=== PATIENT | female | born 1955 | race Caucasian/White ===

== ENCOUNTER 2024-10-07 16:47 | Emergency (ER) | payer MEDICARE, SELFPAY ==
[2024-10-07] VITALS (7 sets, daily range): BP systolic 111–135; BP diastolic 56–89; PULSE 75–89; RESP 16; TEMP 36.9; O2SAT 96–99; BMI 20.3
--- NOTE | 2024-10-07 17:15 | EKG_ITS ---
[address] [address] Test Date: 2024-10-07 Pat Name: Nehal Medel Department: [facility] Room: Gender: Female [employer] Manager: KSENIA : 1955 Requested By: Order Number: [id number] Reading MD: Elan Pennington Measurements Intervals [place] Rate: 75 P: 68 [place]: 158 QRS: 70 QRSD: 86 T: 62 QT: 392 QTc: 437 Interpretive Statements Normal sinus rhythm Electronically Signed On 10-11-2024 9:13:46 PDT by Elan Pennington
[2024-10-07 18:21] LABS: Hematocrit 44.9 % (36-46); Hemoglobin 15.0 g/dL (12.0-16.0); Mean Corpuscular HGB Conc 33.3 % (30-36); Mean Corpuscular Hemoglobin 30.4 PG (26-34); Mean Corpuscular Volume 91.2 fL (80-100); Platelet Count 204 X10^3/uL (150-400)
[2024-10-07 18:27] LABS: Alanine Aminotransferase 18 IU/L (<35); Albumin 4.7 g/dL (3.5-5.0); Albumin Globulin Ratio 1.6 (1.0-2.8); Alkaline Phosphatase 86 U/L (38-126); Blood Urea Nitrogen 18 mg/dL (7-17); Calcium 9.4 mg/dL (8.4-10.2); Carbon Dioxide 26 mmol/L (22-32); Chloride 99 mmol/L (98-107); Estimated Glomerular Filt Rate > 60 mL/min (>60); Globulin 3.0 g/dL (1.7-4.1); Glucose 99 mg/dL (70-99); HEMOLYSIS < 15 (0-50); Lipase 49 U/L (23-300); Potassium 3.8 mmol/L (3.4-5.1); Sodium 134 mmol/L (137-145); Total Protein 7.7 g/dL (6.3-8.2)
[2024-10-07 18:48] LABS: Culture Indicated Urine Cult Not Indicated
[2024-10-07 19:02] LABS: Add Manual Diff / Slide Review YES
--- NOTE | 2024-10-07 19:16 | ED.ABDPAIN ---
HPI - Abdominal Pain General Chief Complaint: Abdominal Pain Stated Complaint: severe lower abd cramping Time Seen by Provider: 10/07/24 19:05 Source: patient Mode of arrival: Ambulatory History of Present Illness HPI narrative: 68-year-old female with history of previous mild diverticulitis treated as an outpatient remotely, no known history of kidney stones, 2 weeks ago had left lower quadrant pain for few hours did not seek care and went away by itself, now since yesterday having nontraumatic left lower quadrant, more so than right lower quadrant pain. No nausea or vomiting. No diarrhea. No black or red stools. No frequency or painful urination. No fevers or chills. No cough or shortness of breath. Related Data Previous Rx's ?Medication ?Instructions ?Recorded amoxicillin 875 mg-potassium 1 tab PO BID #20 tabs 10/07/24 clavulanate 125 mg tablet Allergies Allergy/AdvReac Type Severity Reaction Status Date / Time No Known Drug Allergies Allergy Verified 10/07/24 17:12 Patient History Social History Smoking Status: Never smoker Smoking Status: Never smoker Exam Narrative Exam Narrative: GENERAL: Well-developed patient, in mild distress. HEAD: Atraumatic. Normocephalic. EYES: Pupils equal round and reactive. Extraocular motions intact. No scleral icterus. No injection or drainage. ENT: Nose without bleeding, purulent drainage. Throat without erythema, tonsillar hypertrophy or exudate. Airway patent. NECK: Trachea midline. Non tender CARDIOVASCULAR: Regular rate and rhythm without murmurs, gallops, or rubs. RESPIRATORY: Clear to auscultation. Breath sounds equal bilaterally. No wheezes, rales, or rhonchi. GASTROINTESTINAL: Abdomen soft, non-tender, nondistended. EXTREMITIES: No edema or joint tenderness. BACK: Nontender without deformity or crepitance. No flank tenderness. NEURO: AOx3. Motor functions grossly nonfocal. SKIN: No rash or erythema of visible areas Initial Vital Signs Initial Vital Signs: Vital Signs Temperature 98.5 F 10/07/24 17:07 Pulse Rate 89 10/07/24 17:07 Respiratory Rate 16 10/07/24 17:07 Blood Pressure 135/89 10/07/24 17:07 Pulse Oximetry 97 10/07/24 17:07 Oxygen Delivery Method Room Air 10/07/24 17:07 Course Orders Ordered: ED Orders 10/07/24 19:31 CT abdomen pelvis w con Stat Discontinued Medications Sodium Chloride (Normal Saline 0.9%) 1,000 mls @ 1,000 mls/hr IV BOLUS ONE Stop: 10/07/24 20:30 Last Infusion: 10/07/24 20:58 Dose: Infused Documented By: Admin: 10/07/24 19:34 Dose: 1,000 mls/hr Documented By: KANE Piperacillin Sod/Tazobactam (Sod 4.5 gm/ Sodium Chloride) 100 mls @ 200 mls/hr IV NOW ONE Stop: 10/07/24 20:45 Last Infusion: 10/07/24 21:33 Dose: Infused Documented By: Admin: 10/07/24 20:59 Dose: 200 mls/hr Documented By: KANE Ondansetron HCl (Ondansetron 4 Mg/2 Ml Inj) 4 mg IV NOW PRN PRN Reason: Nausea And Vomiting Ondansetron HCl (Ondansetron 4 Mg Odt) 4 mg PO NOW PRN PRN Reason: Nausea And Vomiting Vital Signs Vital signs: Vital Signs - 8 hr 10/07/24 20:15 10/07/24 20:15 10/07/24 20:30 Pulse Rate 75 Blood Pressure 117/68 127/74 Pulse Oximetry 98 Oxygen Delivery Method 10/07/24 20:30 10/07/24 21:00 10/07/24 21:00 Pulse Rate 77 77 Blood Pressure 125/61 Pulse Oximetry 99 97 Oxygen Delivery Method 10/07/24 21:29 Pulse Rate 76 Blood Pressure 116/58 L Pulse Oximetry 97 Oxygen Delivery Method Room Air MDM - Abdominal Pain Lab Data Attestation: I reviewed the patient's lab results. Lab results narrative: White blood cell count 42664, hemoglobin 15, platelets adequate. Glucose 99. BUN 18 with creatinine 0.80, normal serum CO2, slight decreased sodium 134, normal potassium. Liver functions and lipase normal. Urine dip negative. 10/07/24 18:10 10/07/24 18:10 Labs: Lab Results 10/07/24 Range/Units 18:10 WBC 13.2 H (4.5-11.0) X10^3/uL RBC 4.93 (4.0-5.2) X10^6/uL Hgb 15.0 (12.0-16.0) g/dL Hct 44.9 (36-46) % MCV 91.2 (80-100) fL MCH 30.4 (26-34) PG MCHC 33.3 (30-36) % RDW 13.9 (11.6-14.8) % Plt Count 204 (150-400) X10^3/uL Neut % (Auto) Not Reportable Lymph % (Auto) Not Reportable [place] % (Auto) Not Reportable Eos % (Auto) Not Reportable Baso % (Auto) Not Reportable Lymph # (Auto) Not Reportable [place] # (Auto) Not Reportable Baso # (Auto) Not Reportable Total Counted 100 Seg Neutrophils % 80.0 H (38-70) % Lymphocytes % (Manual) 11.0 L (25-45) % Monocytes % (Manual) 4.0 (2-11) % Eosinophils % (Manual) 2.0 (2-4) % Basophils % (Manual) 3.0 H (0-1) % Neutrophils # (Manual) 85378 H (9382-6652) /uL Platelet Estimate Adequate on smear RBC Morphology Normal morphology Sodium 134 L (137-145) mmol/L Potassium 3.8 (3.4-5.1) mmol/L Chloride 99 (98-107) mmol/L Carbon Dioxide 26 (22-32) mmol/L BUN 18 H (7-17) mg/dL Creatinine 0.80 (0.52-1.04) mg/dL Estimated GFR > 60 (>60) mL/min BUN/Creatinine Ratio 22.5 H (6-22) Glucose 99 (70-99) mg/dL Calcium 9.4 (8.4-10.2) mg/dL Total Bilirubin 1.2 (0.2-1.3) mg/dL AST 31 (14-36) IU/L ALT 18 (<35) IU/L Alkaline Phosphatase 86 (38-126) U/L Total Protein 7.7 (6.3-8.2) g/dL Albumin 4.7 (3.5-5.0) g/dL Globulin 3.0 (1.7-4.1) g/dL Albumin/Globulin Ratio 1.6 (1.0-2.8) Lipase 49 (23-300) U/L Urine RBC None seen (0-5/HPF) Urine WBC 0-1/hpf (0-5/HPF) Ur Squamous Epith Cells 0-1 /hpf (0-5/HPF) Urine Bacteria None seen (None) Ur Culture Indicated? Cult not indicated Vol Urine Centrifuged 10ml (spun) Point of care testing: Urine Dip Bedside Urine Glucose Negative Bedside Urine Bilirubin - Negative Bedside Urine Ketone + 15 Urine Specific [place] 1.015 Bedside Urine Occult Blood - Negative Bedside Urine pH 6.0 Bedside Urine Protein - Negative Bedside Urine Urobilinogen - Negative Bedside Urine Nitrite - Negative Bedside Urine Leukocytes - Negative Esterase Imaging Data CT scan - abdomen/pelvis: Radiologist's Impression: [address] [address] [address] Scan Report Signed Patient: Nehal Medel MR#: [id number] : 1955 Acct:[id number] Age/Sex: 68 / F Date of Service: 10/07/24 Loc: ED Accession Number: [id number] Procedure: CT abdomen pelvis w con Ordering Provider: Wesley Valencia MD PROCEDURE: CT ABDOMEN PELVIS W CON INDICATIONS: LLQ pain TECHNIQUE: After the administration of intravenous contrast, axial sections acquired from the lung bases to the pubic symphysis. Coronal and sagittal reformats were performed. For radiation dose reduction, the following was used: automated exposure control, adjustment of mA and/or kV according to patient size. COMPARISON: None. FINDINGS: Image quality: Diagnostic. Lower Chest: No significant findings. ABDOMEN: Liver: No solid mass. Simple appearing cysts as well as subcentimeter hypodensities which are too small to accurately characterize. Gallbladder: No radiopaque gallstones or wall thickening. Biliary ducts: No biliary dilation. Pancreas: No ductal dilation. Spleen: Size is within normal limits. Adrenal Glands: No adrenal nodules. Kidneys and Ureters: No hydronephrosis. No solid mass. No complex renal cystic lesion which requires follow up. Stomach and Bowel: Diverticulosis with wall thickening and fat stranding of the sigmoid colon consistent acute diverticulitis. Large stool burden throughout the colon. Peritoneum: Small free fluid within the pelvis. No organized fluid collections.. No free air. Ventral Wall: No significant ventral hernia. Abdominal Nodes: No retroperitoneal or mesenteric adenopathy by size criteria. Vessels: Aorta and inferior vena cava are normal in size. Calcified thrombosed distal splenic artery aneurysm measuring up to 2.2 cm. Possible calcified right renal artery aneurysm measuring 8 mm versus prominent atherosclerotic calcification. Atherosclerotic vascular calcifications. PELVIS: Pelvic Organs: Unremarkable. Bladder: No bladder wall thickening, accounting for underdistention. Pelvic Nodes: No enlarged lymph nodes. Miscellaneous: No inguinal hernias are seen. Bones: No aggressive osseous abnormality. Decreased osseous mineralization. IMPRESSION: 1. Findings consistent with acute sigmoid diverticulitis. No extraluminal gas or organized fluid collections. 2. Calcified thrombosed distal splenic artery aneurysm measuring up to 2.2 cm. Possible calcified right renal artery aneurysm measuring 8 mm versus prominent atherosclerotic calcification. 3. Large burden of stool throughout the colon, correlate for constipation. 4. Please see above for additional incidental findings. Dictated by: Darin Murillo M.D. on 10/07/2024 at 20:16 Approved by: Darin Murillo M.D. on 10/07/2024 at 20:21 ECG Data Attestation: I personally reviewed and interpreted this ECG as follows: Interpretation: 1820, normal sinus rhythm. No obvious ST segment elevation or depression changes. [place] 158, QRS 86, QTC 437. MDM Narrative Medical decision making narrative: EKG normal sinus rhythm without obvious ischemic changes. Lab data: White blood cell count 84433, hemoglobin 15, platelets adequate. Glucose 99. BUN 18 with creatinine 0.80, normal serum CO2, slight decreased sodium 134, normal potassium. Liver functions and lipase normal. Urine dip negative. CT abdomen and pelvis. Impressions: ?1. Findings consistent with acute sigmoid diverticulitis. No extraluminal gas or organized fluid collections.2. Calcified thrombosed distal splenic artery aneurysm measuring up to 2.2 cm. Possible calcified right renal artery aneurysm measuring 8 mm versus prominent atherosclerotic calcification.3. Large burden of stool throughout the colon, correlate for constipation.4. Please see above for additional incidental findings. See radiology report. Copy of report provided to patient, with discussion of acute diverticulitis changes of the sigmoid, uncomplicated at present without perforation or abscess or obstruction. We did discuss the incidental thrombosed splenic artery aneurysm, of unclear significance, that could have further workup as an outpatient for now. Calcified right renal artery aneurysm also noted, small, further workup as an outpatient. Large stool burden also discussed, consider MiraLax laxative as an outpatient. We will start antibiotics for acute diverticulitis, treatment as an outpatient for now, hemodynamically stable. Patient/family agreeable to this plan. IV Zosyn. We will further treat with 10 day course oral Augmentin as an outpatient. Discharged home with . Return precautions discussed. Discharge Plan Departure Patient Disposition: Home Clinical Impression: Diverticulitis Instructions: DI for Diverticulitis Activity Restrictions/Additional Instructions: Left lower quadrant abdominal pain, history of prior diverticulitis treated as an outpatient. No fever on triage. Some tenderness to palpation on examination. CT abdomen pelvis showed acute diverticulitis in the sigmoid left lower quadrant region. There is no perforation or abscess or bowel obstruction complications at this time. Trial of oral antibiotics. IV Zosyn antibiotic given in the emergency department. Prescription for Augmentin (amoxicillin/clavulanate) oral antibiotic sent to your requested pharmacy. Take antibiotics as directed. Drink plenty of fluids. Incidentally noted on the CT scan was significant constipation as well, consider [id number] MiraLax use. Consider increased fiber intake anterior diet. Recheck with your regular provider if not improving in the next 2-3 days. Return to this/nearest emergency department for any change worsening symptoms or any concerns prior. Prescriptions: New amoxicillin-pot clavulanate 875-125 mg tablet 1 tab PO BID Qty: 20 0RF Referrals: Miscellaneous,Doctor, [Primary Care Provider, Medical] Stand Alone Forms: Patient Portal/API
--- NOTE | 2024-10-07 19:31 | DI.CT.S_ITS ---
PROCEDURE: CT ABDOMEN PELVIS W CON INDICATIONS: LLQ pain TECHNIQUE: After the administration of intravenous contrast, axial sections acquired from the lung bases to the pubic symphysis. Coronal and sagittal reformats were performed. For radiation dose reduction, the following was used: automated exposure control, adjustment of mA and/or kV according to patient size. COMPARISON: None. FINDINGS: Image quality: Diagnostic. Lower Chest: No significant findings. ABDOMEN: Liver: No solid mass. Simple appearing cysts as well as subcentimeter hypodensities which are too small to accurately characterize. Gallbladder: No radiopaque gallstones or wall thickening. Biliary ducts: No biliary dilation. Pancreas: No ductal dilation. Spleen: Size is within normal limits. Adrenal Glands: No adrenal nodules. Kidneys and Ureters: No hydronephrosis. No solid mass. No complex renal cystic lesion which requires follow up. Stomach and Bowel: Diverticulosis with wall thickening and fat stranding of the sigmoid colon consistent acute diverticulitis. Large stool burden throughout the colon. Peritoneum: Small free fluid within the pelvis. No organized fluid collections.. No free air. Ventral Wall: No significant ventral hernia. Abdominal Nodes: No retroperitoneal or mesenteric adenopathy by size criteria. Vessels: Aorta and inferior vena cava are normal in size. Calcified thrombosed distal splenic artery aneurysm measuring up to 2.2 cm. Possible calcified right renal artery aneurysm measuring 8 mm versus prominent atherosclerotic calcification. Atherosclerotic vascular calcifications. PELVIS: Pelvic Organs: Unremarkable. Bladder: No bladder wall thickening, accounting for underdistention. Pelvic Nodes: No enlarged lymph nodes. Miscellaneous: No inguinal hernias are seen. Bones: No aggressive osseous abnormality. Decreased osseous mineralization. IMPRESSION: 1. Findings consistent with acute sigmoid diverticulitis. No extraluminal gas or organized fluid collections. 2. Calcified thrombosed distal splenic artery aneurysm measuring up to 2.2 cm. Possible calcified right renal artery aneurysm measuring 8 mm versus prominent atherosclerotic calcification. 3. Large burden of stool throughout the colon, correlate for constipation. 4. Please see above for additional incidental findings. Dictated by: Darin Murillo M.D. on 10/07/2024 at 20:16 Approved by: Darin Murillo M.D. on 10/07/2024 at 20:21
[2024-10-07] MEDS: SODIUM CHLORIDE 0.9% 1,000 ML 1000 ML IV (19:34)
[2024-10-07 19:49] LABS: Basophils Percent Manual 3.0 % (0-1); Eosinophils Percent Manual 2.0 % (2-4); Lymphocytes Percent Manual 11.0 % (25-45); Monocytes Percent Manual 4.0 % (2-11); Neutrophils Absolute Manual 10560 /uL (3000-5900); RBC Morphology Normal Morphology; Segmented Neutrophils Percent 80.0 % (38-70); Total Cells Counted 100
[2024-10-07] MEDS: PIPERACILLIN/TAZO 4.5 GM in SODIUM CHLORIDE 0.9% 100 ML IV (20:59)
== END 2024-10-07 21:29 | disposition home or self-care (01) ==
PROVIDERS: Emergency Medicine; Emergency Provider Emergency Medicine
DX: K57.92 Diverticulitis of intestine, part unspecified, without perforation or abscess without bleeding (principal)
CPT/HCPCS: 36415; 74177; 80053; 81003; 81015; 83690; 85007; 85025; 87086; 93005; 96361; 96365; 99284; J2543; Q9967